=== PATIENT | male | born 1965 | race Caucasian/White ===

== ENCOUNTER 2018-09-19 09:40 | Inpatient (IN) | payer OTHER ==
[2018-09-17 12:29] LABS: BASOPHILS # (AUTO) 0.1 X10'3 (0-0.2); BASOPHILS % (AUTO) 0.8 % (0-1); EOSINOPHILS # (AUTO) 0.6 X10'3 (0-0.9); EOSINOPHILS % (AUTO) 6.1 % (0-6); LYMPHOCYTES # (AUTO) 2.1 X10'3 (1.1-4.8); LYMPHOCYTES % (AUTO) 22.8 % (21-51); MEAN CORPUSCULAR HEMOGLOBIN 31.4 PG (27.0-31.0); MEAN CORPUSCULAR HGB CONC 34.6 g/dL (33.0-36.5); MEAN CORPUSCULAR VOLUME 90.7 FL (78-98); MEAN PLATELET VOLUME 7.6 FL (7.4-10.4); MONOCYTES # (AUTO) 0.8 X10'3 (0-0.9); MONOCYTES % (AUTO) 8.6 % (2-12); NEUTROPHILS # (AUTO) 5.6 X10'3 (1.8-7.7); NEUTROPHILS % (AUTO) 61.7 % (42-75); PRE OP HEMATOCRIT 50.2 % (42.0-52.0); PRE OP HEMOGLOBIN 17.4 g/dL (14.0-17.9); PRE OP PLATELET COUNT 332 X10'3 (140-440); RED BLOOD COUNT 5.54 X10'6 (4.70-6.10); RED CELL DISTRIBUTION WIDTH 14.9 % (11.5-14.5)
[2018-09-17 12:50] LABS: ALBUMIN 4.2 G/DL (3.4-5.0); ALBUMIN/GLOBULIN RATIO 1.1 (1.1-1.5); ALKALINE PHOSPHATASE 55 IU/L (46-116); BLOOD UREA NITROGEN 18 MG/DL (7-18); BUN/CREATININE RATIO 22.2 (5.4-32.0); CHLORIDE 104 MMOL/L (99-107); CREATININE 0.81 MG/DL (0.60-1.10); PRE OP ALT 27 U/L (30-65); PRE OP ANION GAP 10 (8-16); PRE OP AST 15 U/L (10-37); PRE OP BILIRUB, TOTAL 0.3 MG/DL (0.0-1.0); PRE OP GLUCOSE 89 MG/DL (70-104); PRE OP POTASSIUM 3.8 MMOL/L (3.4-5.1); PRE OP SODIUM 139 MMOL/L (135-145); TOTAL CARBON DIOXIDE 25.3 MMOL/L (24-32); TOTAL PROTEIN 8.2 G/DL (6.4-8.2); eGFR > 90 ML/MIN
[2018-09-17 12:53] LABS: CLARITY,URINE CLEAR (Clear); COLOR,URINE YELLOW (Yellow); GLUCOSE, URINE NEGATIVE (Neg); KETONES,URINE NEGATIVE (Neg); LEUKOCYTE ESTERASE ,URINE NEGATIVE (Neg); NITRITES, URINE NEGATIVE (Neg); OCCULT BLOOD,URINE NEGATIVE (Neg); PH,URINE 5.5 (4.8-8.0); PROTEIN,URINE NEGATIVE (Neg); UROBILINOGEN,URINE 0.2 E.U/dL (0.2-1.0)
[2018-09-17 13:14] LABS: UA COLLECTION TYPE VOIDED
[2018-09-19] VITALS (23 sets, daily range): BP systolic 109–162; BP diastolic 47–105
[~2018-09-19] VITALS: Ht 172.7 cm; Wt 114.6 kg
[~2018-09-19 09:40] MED LIST: FLUT1DIS INH; cefotetan 2gm/isosm dext IVPB 50 ML IV ONE; famotidine 20mg tablet PO ONE
[2018-09-19] MEDS ORDERED: BUPIVAcaine/PF 2.5 mg/ml (0.25%) 30ml vial ONE (10:23)
[2018-09-19] MEDS ORDERED: ceFAZolin 1000mg inj ONE (10:23)
[2018-09-19] MEDS ORDERED: LIDOcaine 1% (10mg/ml) 2ml vial ONE (10:35)
[2018-09-19] MEDS: ringers solution, lacted 1,000 ML IV SCH (10:50)
[2018-09-19] MEDS ORDERED: ringers solution, lacted 1,000 ML IV SCH ×2 (11:26→15:12)
[2018-09-19] MEDS ORDERED: meperidine/PF 25mg/ml syringe IV PRN ×5 (11:30→15:15)
[2018-09-19] MEDS ORDERED: proCHLORperazine 10 MG/2 ml inj IV PRN ×2 (11:30→15:15)
[2018-09-19] MEDS ORDERED: ondansetron/PF 4mg/2ml inj IV PRN ×3 (11:30→16:35)
[2018-09-19] MEDS ORDERED: morphine 4 MG/ML inj SYRINge IV PRN ×4 (11:30→15:15)
[2018-09-19] MEDS ORDERED: midazolam 2 mg/2 ml injection ONE (12:56)
[2018-09-19] MEDS ORDERED: fentaNYL /PF 50mcg/ml 5ml ampule ONE (12:57)
[2018-09-19] MEDS ORDERED: BUPIVACAINE liposomal/PF 13.3 MG/ML vial IM ONE (13:00)
[2018-09-19] MEDS ORDERED: BUPIVAcaine/PF 2.5mg/ml (0.25%) 10ml vial ONE (13:00)
[2018-09-19] MEDS ORDERED: sevoflurane 250ml liquid IH ONE (13:06)
--- NOTE | 2018-09-19 13:45 | NUR ---
Received from OR via BED , accompanied by Anesthesiologist DR FERNANDO and report given by Anesthesiolgist, PATIENT WAKING UP, DENIES PAIN, V/S WNL, CSM INTACT, ABDOMEN DRESSING CDI SCD ON, 20G PIV TO RAFAEL,
[2018-09-19] MEDS ORDERED: meperidine/PF 50mg/ml syringe ONE (15:18)
--- NOTE | 2018-09-19 15:35 | NUR ---
Received from OR via BED, accompanied by Anesthesiologist DR RUBIN and report given by Anesthesiologist. PT DROWSY, DENIES PAIN, ABDOMEN W/2 GAUZE LOLI'S CDI, W/LISA TO BULB SUCTION, W/SANGUINOUS DRAINAGE, WALL CATHETER TO GRAVITY DRAINAGE BLOODY URINE IN TUBING, DR RUBIN AWARE. Addendum: 09/19/18 at 1601 by Cassia Kitchen RN Amended: Links added.
[2018-09-19] MEDS ORDERED: dexamethasone sod phosphate 4mg/ml inj. ONE (15:48)
[2018-09-19] MEDS ORDERED: neostigmine methylsulfate 1 MG/ML 10ml vial ONE (15:48)
[2018-09-19] MEDS ORDERED: rocuronium 10mg/ml inj IV ONE (15:48)
[2018-09-19] MEDS ORDERED: ondansetron/PF 4mg/2ml inj ONE (15:48)
[2018-09-19] MEDS ORDERED: hydrALAZINE 20mg/ml inj. IV ONE (15:48)
[2018-09-19] MEDS ORDERED: propofol inj 20 ML IV ONE (15:48)
[2018-09-19] MEDS ORDERED: LIDOcaine 2% (20mg/ml) 5ml vial ONE (15:48)
[2018-09-19] MEDS ORDERED: albuterol 60 PUFF/8GM Inhaler IH ONE (15:48)
[2018-09-19] MEDS ORDERED: glycopyrrolate 0.2mg/ml inj ONE (15:48)
[2018-09-19] MEDS: meperidine/PF 25mg/ml syringe IV PRN ×2 (16:18→16:54)
[2018-09-19] MEDS ORDERED: naloxone 0.4 mg/ml inj IV PRN (16:35)
[2018-09-19] MEDS ORDERED: dextrose ORAL solution 15 GM/59 ML bottle PO PRN ×2 (16:35)
[2018-09-19] MEDS ORDERED: glucagon, human recombinant 1mg kit SUBCUT PRN (16:35)
[2018-09-19] MEDS ORDERED: CADD PCA waste documentation MC PRN (16:35)
[2018-09-19] MEDS ORDERED: dextrose 50%-water 50ml dispensing syringe IV PRN ×2 (16:35)
[2018-09-19] MEDS ORDERED: MESSAGE TO PHARMACY PO ONE (16:35)
[2018-09-19] MEDS ORDERED: HYDROmorphone/NS 1 mg/ml CADD 50 ML IV SCH (17:00)
[2018-09-19] MEDS: HYDROmorphone/NS 1 mg/ml CADD 50 ML IV SCH ×3 (17:19→23:00)
--- NOTE | 2018-09-19 17:35 | NUR ---
Report called to receiving nurse. Transferred via BED ON TELE #23 W/2 BLACK DUFFLE BAGS SENT W/PT TO ROOM 357A, RECEIVING RN AT BEDSIDE TO RECEIVE PT. Special Issues communicated to receiving nurse. YES. Addendum: 09/19/18 at 1746 by Cassia Kitchen RN Amended: Links added.
--- NOTE | 2018-09-19 17:58 | NUR ---
Patient just got here from PACU, introduced self to patient, oriented to the unit. 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 Blood sugar checked 185 mg/dl. Patient was alert, oriented x 4. Hooked patient to postop vital signs machine
--- NOTE | 2018-09-19 18:28 | NUR ---
Problems reprioritized. Patient report given, questions answered & plan of care reviewed with Dagoberto CORCORAN.
--- NOTE | 2018-09-19 18:29 | NUR ---
Patient in room [facility]. I have received report from NILO Harkins and had the opportunity to ask questions and assume patient care.
[2018-09-19 19:28] LABS: HEMOGLOBIN A1C 5.5 % (4.5-6.2)
[2018-09-19] MEDS: BUDESONIDE 0.25 MG/2 ML AMPUL.NEB IH SCH (20:12)
[2018-09-19] MEDS: albuterol 2.5 MG/3 ML nebule NEB SCH (20:12)
[2018-09-19] MEDS: insulin glargine (Lantus) pen - multi-dose SQ SCH (21:00)
[2018-09-20] VITALS: BP 112/77
[2018-09-20] MEDS ORDERED: ceFOXitin 1 GM ADDVANTAGE BAG 1,000 GM in normal saline 100ml IV soln 100 ML IV SCH ×2
[2018-09-20] MEDS: cefotetan 1gm/50ml IVPB 50 ML IV SCH ×2 (00:33→08:40)
[2018-09-20] MEDS: ringers solution, lacted 1,000 ML IV SCH (00:33)
[2018-09-20] MEDS: HYDROmorphone/NS 1 mg/ml CADD 50 ML IV SCH ×12 (01:00→23:00)
[2018-09-20 05:38] LABS: BASOPHILS # (AUTO) 0.1 X10'3 (0-0.2); BASOPHILS % (AUTO) 0.3 % (0-1); EOSINOPHILS % (AUTO) 0 % (0-6); HEMATOCRIT 44.7 % (42.0-52.0); HEMOGLOBIN 15.4 g/dl (14.0-17.9); LYMPHOCYTES # (AUTO) 0.5 X10'3 (1.1-4.8); LYMPHOCYTES % (AUTO) 2.9 % (21-51); MEAN CORPUSCULAR HGB CONC 34.5 g/dL (33.0-36.5); MEAN CORPUSCULAR VOLUME 90.1 FL (78-98); MEAN PLATELET VOLUME 7.8 FL (7.4-10.4); MONOCYTES # (AUTO) 0.9 X10'3 (0-0.9); MONOCYTES % (AUTO) 4.9 % (2-12); NEUTROPHILS # (AUTO) 16.6 X10'3 (1.8-7.7); NEUTROPHILS % (AUTO) 91.9 % (42-75); PLATELET COUNT 278 X10'3 (140-440); RED BLOOD COUNT 4.97 X10'6 (4.70-6.10); RED CELL DISTRIBUTION WIDTH 15.1 % (11.5-14.5); WHITE BLOOD COUNT 18.1 X10'3 (4.5-11.0)
[2018-09-20 05:50] LABS: ALBUMIN 3.6 G/DL (3.4-5.0); ANION GAP 10 (8-16); BLOOD UREA NITROGEN 16 MG/DL (7-18); CALCIUM 9.1 MG/DL (8.5-10.1); CHLORIDE 103 MMOL/L (99-107); CREATININE 0.94 MG/DL (0.60-1.10); GLUCOSE 187 MG/DL (70-104); POTASSIUM 4.1 MMOL/L (3.5-5.1); SODIUM 137 MMOL/L (135-145); TOTAL CARBON DIOXIDE 23.9 MMOL/L (24-32); eGFR 83 ML/MIN
--- NOTE | 2018-09-20 06:27 | NUR ---
Problems reprioritized. Patient report given, questions answered & plan of care reviewed with NILO Harkins.
--- NOTE | 2018-09-20 06:30 | NUR ---
Patient in room [facility]. I have received report from Dagoberto CORCORAN and had the opportunity to ask questions and assume patient care.
[2018-09-20 07:00] VITALS: BP 117/84
[2018-09-20] MEDS: albuterol 2.5 MG/3 ML nebule NEB SCH ×4 (08:06→20:26)
[2018-09-20] MEDS: BUDESONIDE 0.25 MG/2 ML AMPUL.NEB IH SCH (08:06)
[2018-09-20] MEDS: enoxaparin 40mg/0.4ml syringe SQ SCH (08:40)
--- NOTE | 2018-09-20 08:47 | NUR ---
Patient did not have humalog available to cover the blood sugar of 185 this am. Message sent to pharmacy requesting humalog
[2018-09-20] MEDS: insulin Lispro (HumaLOG) vial - multi-dose SQ SCH ×3 (09:06→19:14)
--- NOTE | 2018-09-20 09:08 | NUR ---
Patient requested only 5 units of Humalog instead of 10 units (calculated total correctional and nutritional dose per protocol). Patient stated that his blood sugar can go down quickly and that he never had insulin before. Instructed patient to call me if he thinks his blood sugar is low or he is sweaty and he doesn't feel good. Will recheck blood sugar if needed
[2018-09-20 11:00] VITALS: BP 122/74
[2018-09-20 12:20] VITALS: BP 111/72
[2018-09-20 18:00] VITALS: BP 111/64
--- NOTE | 2018-09-20 18:18 | NUR ---
Problems reprioritized. Patient report given, questions answered & plan of care reviewed with Dagoberto CORCORAN.
--- NOTE | 2018-09-20 18:19 | NUR ---
Patient in room [facility]. I have received report from Ferdinand Harkins and had the opportunity to ask questions and assume patient care.
[2018-09-20] MEDS: insulin glargine (Lantus) pen - multi-dose SQ SCH (21:15)
[2018-09-21] MEDS: HYDROmorphone/NS 1 mg/ml CADD 50 ML IV SCH ×12 (01:00→23:00)
--- NOTE | 2018-09-21 06:18 | NUR ---
Problems reprioritized. Patient report given, questions answered & plan of care reviewed with NILO Tran.
[2018-09-21 06:21] LABS: BASOPHILS % (AUTO) 0.3 % (0-1); EOSINOPHILS # (AUTO) 0.1 X10'3 (0-0.9); EOSINOPHILS % (AUTO) 0.5 % (0-6); HEMATOCRIT 36.2 % (42.0-52.0); HEMOGLOBIN 12.6 g/dl (14.0-17.9); LYMPHOCYTES # (AUTO) 1.5 X10'3 (1.1-4.8); LYMPHOCYTES % (AUTO) 12.9 % (21-51); MEAN CORPUSCULAR HEMOGLOBIN 31.5 PG (27.0-31.0); MEAN CORPUSCULAR HGB CONC 34.8 g/dL (33.0-36.5); MEAN CORPUSCULAR VOLUME 90.4 FL (78-98); MONOCYTES # (AUTO) 0.9 X10'3 (0-0.9); MONOCYTES % (AUTO) 7.3 % (2-12); NEUTROPHILS # (AUTO) 9.2 X10'3 (1.8-7.7); PLATELET COUNT 226 X10'3 (140-440); RED BLOOD COUNT 4.01 X10'6 (4.70-6.10); RED CELL DISTRIBUTION WIDTH 14.8 % (11.5-14.5); WHITE BLOOD COUNT 11.6 X10'3 (4.5-11.0)
[2018-09-21 06:31] LABS: ALBUMIN 3.3 G/DL (3.4-5.0); ANION GAP 9 (8-16); BLOOD UREA NITROGEN 14 MG/DL (7-18); BUN/CREATININE RATIO 16.5 (5.4-32.0); CALCIUM 9.2 MG/DL (8.5-10.1); CHLORIDE 103 MMOL/L (99-107); CREATININE 0.85 MG/DL (0.60-1.10); GLUCOSE 115 MG/DL (70-104); POTASSIUM 3.5 MMOL/L (3.5-5.1); SODIUM 139 MMOL/L (135-145); TOTAL CARBON DIOXIDE 27.1 MMOL/L (24-32); eGFR > 90 ML/MIN
--- NOTE | 2018-09-21 06:33 | NUR ---
Patient in room [facility]. I have received report from Dagoberto CORCORAN and had the opportunity to ask questions and assume patient care.
[2018-09-21] MEDS: enoxaparin 40mg/0.4ml syringe SQ SCH (07:23)
[2018-09-21 07:33] VITALS: BP 102/68
[2018-09-21] MEDS: BUDESONIDE 0.25 MG/2 ML AMPUL.NEB IH SCH ×3 (07:54→20:38)
[2018-09-21] MEDS: albuterol 2.5 MG/3 ML nebule NEB SCH ×4 (07:54→20:38)
[2018-09-21] MEDS: insulin Lispro (HumaLOG) vial - multi-dose SQ SCH ×3 (09:14→19:24)
[2018-09-21 12:06] VITALS: BP 113/79
[2018-09-21] MEDS ORDERED: ringers solution, lacted 1,000 ML IV SCH (15:20)
--- NOTE | 2018-09-21 18:31 | NUR ---
Problems reprioritized. Patient report given, questions answered & plan of care reviewed with Suzie CORCORAN.
--- NOTE | 2018-09-21 18:35 | NUR ---
Patient in room [facility]. I have received report from OBI CORCORAN and had the opportunity to ask questions and assume patient care.
[2018-09-21 20:00] VITALS: BP 113/75
[2018-09-21] MEDS: cefotetan inj 1 GM in normal saline 50ml IV soln 50 ML IV SCH (21:01)
[2018-09-21] MEDS: insulin glargine (Lantus) pen - multi-dose SQ SCH (21:47)
[2018-09-22] VITALS: BP 113/75
[2018-09-22] MEDS: HYDROmorphone/NS 1 mg/ml CADD 50 ML IV SCH ×6 (01:00→13:00)
[2018-09-22 06:11] LABS: BASOPHILS # (AUTO) 0.1 X10'3 (0-0.2); BASOPHILS % (AUTO) 0.8 % (0-1); EOSINOPHILS # (AUTO) 0.4 X10'3 (0-0.9); EOSINOPHILS % (AUTO) 4.6 % (0-6); HEMATOCRIT 37.2 % (42.0-52.0); HEMOGLOBIN 13.2 g/dl (14.0-17.9); LYMPHOCYTES # (AUTO) 1.6 X10'3 (1.1-4.8); LYMPHOCYTES % (AUTO) 16.3 % (21-51); MEAN CORPUSCULAR HEMOGLOBIN 31.7 PG (27.0-31.0); MEAN CORPUSCULAR HGB CONC 35.5 g/dL (33.0-36.5); MEAN CORPUSCULAR VOLUME 89.3 FL (78-98); MEAN PLATELET VOLUME 7.8 FL (7.4-10.4); MONOCYTES % (AUTO) 10.3 % (2-12); NEUTROPHILS # (AUTO) 6.6 X10'3 (1.8-7.7); PLATELET COUNT 239 X10'3 (140-440); RED BLOOD COUNT 4.16 X10'6 (4.70-6.10); RED CELL DISTRIBUTION WIDTH 14.6 % (11.5-14.5); WHITE BLOOD COUNT 9.6 X10'3 (4.5-11.0)
--- NOTE | 2018-09-22 06:30 | NUR ---
Problems reprioritized. Patient report given, questions answered & plan of care reviewed with ADA CORCORAN.
[2018-09-22 06:42] LABS: ALBUMIN 3.4 G/DL (3.4-5.0); ANION GAP 7 (8-16); BLOOD UREA NITROGEN 14 MG/DL (7-18); BUN/CREATININE RATIO 17.5 (5.4-32.0); CALCIUM 8.8 MG/DL (8.5-10.1); CHLORIDE 102 MMOL/L (99-107); GLUCOSE 100 MG/DL (70-104); POTASSIUM 3.4 MMOL/L (3.5-5.1); SODIUM 136 MMOL/L (135-145); TOTAL CARBON DIOXIDE 26.6 MMOL/L (24-32); eGFR > 90 ML/MIN
[2018-09-22] MEDS: albuterol 2.5 MG/3 ML nebule NEB SCH ×4 (07:00→19:28)
[2018-09-22] MEDS: insulin Lispro (HumaLOG) vial - multi-dose SQ SCH ×3 (08:33→19:19)
--- NOTE | 2018-09-22 08:51 | NUR ---
0700 SVN NOT GIVEN. WENT TO PT ROOM @ 0645 AND 0700 TO ADMINISTER TX AND PT WAS NOT IN ROOM. WILL BE BACK TO GIVE 1100 TX. Addendum: 09/22/18 at 0853 by Kalie Manzo RT Amended: Links added.
[2018-09-22] MEDS: cefotetan inj 1 GM in normal saline 50ml IV soln 50 ML IV SCH ×2 (08:56→19:38)
[2018-09-22] MEDS: enoxaparin 40mg/0.4ml syringe SQ SCH (08:58)
[2018-09-22] MEDS: BUDESONIDE 0.25 MG/2 ML AMPUL.NEB IH SCH ×2 (09:00→19:28)
[2018-09-22 12:18] VITALS: BP 140/80
[2018-09-22] MEDS: simethicone 80mg chew tab PO SCH ×2 (13:57→19:39)
[2018-09-22] MEDS ORDERED: potassium Cl 20 mEq SR tablet PO PRN ×2 (14:50)
[2018-09-22] MEDS ORDERED: POTASSIUM 40MEQ/500ML NS ***PERIPHERAL LINE REPLACE IV PRN (15:05)
[2018-09-22] MEDS: K and/or MAG REPLACEMENT MC SCH (15:21)
[2018-09-22] MEDS: HYDROcodone/acetaminophen 10/325mg tab PO PRN ×2 (17:23→23:34)
--- NOTE | 2018-09-22 18:32 | NUR ---
PT. IN ROOM SITTING UP IN BED. NO NEEDS OR COMPLAINTS AT THIS TIME. GAVE REPORT TO ARIANA LANE RN.
--- NOTE | 2018-09-22 18:35 | NUR ---
Patient in room [facility]. I have received report from ADA CORCORAN and had the opportunity to ask questions and assume patient care.
[2018-09-22] MEDS: lactobacillus rhamnosus 10,000 MMU CELLS/CAPSULE PO SCH (19:38)
[2018-09-22 20:00] VITALS: BP 119/68
[2018-09-22] MEDS: insulin glargine (Lantus) pen - multi-dose SQ SCH (21:21)
[2018-09-23] VITALS: BP 131/86
--- NOTE | 2018-09-23 06:15 | NUR ---
Patient in room [facility]. I have received report from Elena Parker RN and had the opportunity to ask questions and assume patient care. Patient up and walking at this time. No new needs expressed. Will continue to monitor patient.
--- NOTE | 2018-09-23 06:17 | NUR ---
Problems reprioritized. Patient report given, questions answered & plan of care reviewed with ALYCE CORCORAN.
[2018-09-23 06:32] LABS: BASOPHILS # (AUTO) 0.1 X10'3 (0-0.2); BASOPHILS % (AUTO) 0.8 % (0-1); EOSINOPHILS # (AUTO) 0.7 X10'3 (0-0.9); EOSINOPHILS % (AUTO) 11.2 % (0-6); HEMATOCRIT 36.5 % (42.0-52.0); HEMOGLOBIN 12.8 g/dl (14.0-17.9); LYMPHOCYTES # (AUTO) 1.2 X10'3 (1.1-4.8); LYMPHOCYTES % (AUTO) 18.2 % (21-51); MEAN CORPUSCULAR HEMOGLOBIN 31.4 PG (27.0-31.0); MEAN CORPUSCULAR VOLUME 89.8 FL (78-98); MEAN PLATELET VOLUME 7.4 FL (7.4-10.4); MONOCYTES # (AUTO) 0.8 X10'3 (0-0.9); MONOCYTES % (AUTO) 12.6 % (2-12); NEUTROPHILS # (AUTO) 3.6 X10'3 (1.8-7.7); NEUTROPHILS % (AUTO) 57.2 % (42-75); PLATELET COUNT 210 X10'3 (140-440); RED BLOOD COUNT 4.06 X10'6 (4.70-6.10); RED CELL DISTRIBUTION WIDTH 14.6 % (11.5-14.5); WHITE BLOOD COUNT 6.3 X10'3 (4.5-11.0)
[2018-09-23 06:40] LABS: ANION GAP 9 (8-16); BLOOD UREA NITROGEN 11 MG/DL (7-18); BUN/CREATININE RATIO 13.6 (5.4-32.0); CALCIUM 9.2 MG/DL (8.5-10.1); CHLORIDE 103 MMOL/L (99-107); CREATININE 0.81 MG/DL (0.60-1.10); GLUCOSE 98 MG/DL (70-104); SODIUM 140 MMOL/L (135-145); TOTAL CARBON DIOXIDE 28.5 MMOL/L (24-32); eGFR > 90 ML/MIN
[2018-09-23 07:16] VITALS: BP 123/76
[2018-09-23] MEDS: K and/or MAG REPLACEMENT MC SCH (08:00)
[2018-09-23] MEDS: albuterol 2.5 MG/3 ML nebule NEB SCH (08:00)
[2018-09-23] MEDS: BUDESONIDE 0.25 MG/2 ML AMPUL.NEB IH SCH (08:00)
[2018-09-23] MEDS: cefotetan inj 1 GM in normal saline 50ml IV soln 50 ML IV SCH (08:36)
[2018-09-23] MEDS: enoxaparin 40mg/0.4ml syringe SQ SCH (08:37)
[2018-09-23] MEDS: lactobacillus rhamnosus 10,000 MMU CELLS/CAPSULE PO SCH (08:37)
[2018-09-23] MEDS: simethicone 80mg chew tab PO SCH (08:38)
[2018-09-23] MEDS: insulin Lispro (HumaLOG) vial - multi-dose SQ SCH (08:46)
--- NOTE | 2018-09-23 09:34 | NUR ---
LISA drain removed per Dr. Munguia order. Patient tolerated well. Gauze and tape placed to site. Will reassess LISA site before patient discharges home.
[2018-09-23] MEDS: HYDROcodone/acetaminophen 10/325mg tab PO PRN (09:42)
--- NOTE | 2018-09-23 11:40 | NUR ---
Patient discharged home via spouse and taken from unit with x1 staff via wheelchair. Patient alert oriented and in no apparent distress at this time. Patient stated that he plans to follow up with Dr. Munguia on . Patient asked about [place] or some sort of pain management. Dr. Munguia was called in regards to the pain medication and he stated that he is going to call in the prescriptions to [facility]. Patient was informed of this. PIV removed with cannula intact. Patient given wound care supplies for home until he can follow up with Dr. Munguai outpatient. Patient stated an understanding on how to care for the wounds. Patient and spouse stated an understanding of discharged instructions and were given time for questions and answers. patient took all belongings but stated that he was missing his shoes. His stated that she may have taken them to the car on a previous time she was here. We have contacted [employer] about the shoes and they checked the lost and found and stated that they were not able to find them. Patient was informed that if his shoes are found we will contact him.
== END 2018-09-23 11:35 | disposition home or self-care (01) | DRG 331 ==
LOC: PAS IN 09:40 → EDSTATUS 12:00 → SUR 3N 17:36
PROVIDERS: ADMIT Surgery; ATTEND Surgery
PROC: 0W9G0ZZ Drainage of Peritoneal Cavity, Open Approach (ICD-10-PCS; 2018-09-19)
PROC: 0DTN0ZZ Resection of Sigmoid Colon, Open Approach (ICD-10-PCS; principal; 2018-09-19 13:06)
PROC: 0T9B80Z Drainage of Bladder with Drainage Device, Via Natural or Artificial Opening Endoscopic (ICD-10-PCS; 2018-09-19 13:06)
DX: K57.20 Diverticulitis of large intestine with perforation and abscess without bleeding (principal); J45.909 Unspecified asthma, uncomplicated; M19.90 Unspecified osteoarthritis, unspecified site; Z96.642 Presence of left artificial hip joint; Z96.652 Presence of left artificial knee joint
CPT/HCPCS: 36415; 71046; 76000; 80048; 80053; 81003; 82948; 83036; 85025; 86885; 86900; 86901; 86920; 87070; 94640; 94760; A4355; A6251; A7000; C1758; C1769; G0378; J0360; J0690; J1100; J1170; J1650; J1815; J2001; J2175; J2250; J2405; J2704; J2710; J3010; J3490; J7030; J7040; J7120